=== PATIENT | male | born 1945 | race Caucasian/White ===

== ENCOUNTER 2019-12-05 12:22 | Emergency (ER) | payer OTHER ==
--- NOTE | 2019-12-05 12:34 | ED ---
Headache - HPI Summary HPI Summary: 74 year old M arriving via ambulance from [facility] with family member complains of diffuse headache x14 days. Patient states that he has had a headache every day for the last 14 days. He states that these headaches start at the same time every day. He takes Advil x2 with relief. Patient states he feels fine when waking up every morning. No nausea/vomiting, chest pain, shortness of breath, visual changes, abdominal pain, weakness, numbness. No recent falls/trauma/injury. No recent medication changes. Pain rated 9/10 in severity. Symptoms aggravated by nothing. Symptoms alleviated by Advil. Medications reviewed. Allergies noted. Hx hypertension. Patient states that his blood pressure today is higher than usual. - History Of Current Complaint Stated Complaint: CHRONIC HEADACHES PER EMS Time Seen by Provider: 12/05/19 12:26 Hx Obtained From: Patient Onset/Duration: Started days ago - 14, Still Present Currently Pain Is: Current Pain Scale(0-10)= - 9, Severe Timing: Intermittent, Lasting: Location of Headache: Diffuse Aggravating Factor: Nothing Allevating Factors: Medication Associated Signs And Symptoms: Negative - nausea/vomiting, chest pain, shortness of breath, visual changes, abdominal pain, weakness, numbness - Allergies/Home Medications Home Medications: Home Medications Ascorbic Acid TAB* [Vitamin C TAB*] 500 mg PO DAILY 12/05/19 [History Confirmed 12/05/19] Aspirin EC TAB* [Ecotrin EC Low Dose 81 MG*] 81 mg PO DAILY 12/05/19 [History Confirmed 12/05/19] Clopidogrel TAB* [Plavix TAB*] 75 mg PO DAILY 12/05/19 [History Confirmed ] Etanercept SYR (NF) [Enbrel (NF)] 50 mg SUBCUT WEEKLY 12/05/19 [History Confirmed 12/05/19] Folic Acid 1,600 mcg PO DAILY 12/05/19 [History Confirmed 12/05/19] Lisinopril TAB* [Prinivil TAB*] 40 mg PO DAILY 12/05/19 [History Confirmed 12/05] Methotrexate TAB* 15 mg PO WEEKLY 12/05/19 [History Confirmed 12/05/19] Omeprazole CAP (NF) [Prilosec CAP* 20 MG] 20 mg PO DAILY 12/05/19 [History Confirmed 12/05/19] Simvastatin TAB(NF) [Zocor(NF)] 10 mg PO DAILY 12/05/19 [History Confirmed 12/05] PMH/Surg Hx/FS Hx/Imm Hx Cardiovascular History: Reports: Hx Hypertension Sensory History: Reports: Hx Contacts or Glasses Opthamlomology History: Reports: Hx Contacts or Glasses - Surgical History Surgery Procedure, Year, and Place: right wrist Infectious Disease History: Denies: Traveled Outside the [place] in Last 30 Days - Family History Known Family History: Positive: Other - father had lung cancer, mother had breast cancer - Social History Alcohol Use: None Substance Use Type: Reports: None Hx Tobacco Use: No Smoking Status (MU): Never Smoked Tobacco Review of Systems Negative: Blurred Vision Negative: Chest Pain Negative: Vomiting, Nausea Positive: Headache. Negative: Weakness, Numbness All Other Systems Reviewed And Are Negative: Yes Physical Exam - Summary Physical Exam Summary: Constitutional: Well-developed, Well-nourished, Alert. (-) Distressed Skin: Warm, Dry HENT: Normocephalic; Atraumatic Eyes: Conjunctiva normal Neck: Musculoskeletal ROM normal neck. (-) JVD, (-) Stridor, (-) Tracheal deviation Cardio: Rhythm regular, rate normal, Heart sounds normal; Intact distal pulses; The pedal pulses are 2+ and symmetric. Radial pulses are 2+ and symmetric. (-) Murmur Pulmonary/Chest wall: Effort normal. (-) Respiratory distress, (-) Wheezes, (-) Rales Abd: Soft, (-) tenderness, (-) Distension, (-) Guarding, (-) Rebound Musculoskeletal: (-) Edema Lymph: (-) Cervical adenopathy Neuro: Alert, Oriented x3 Psych: Mood and affect Normal GCS :15 Triage Information Reviewed: Yes Vital Signs Reviewed: Yes Procedures - Sedation Patient Received Moderate/Deep Sedation with Procedure: No Diagnostics - Laboratory Result Diagrams: 12/05/19 12:57 12/05/19 12:57 Lab Statement: Any lab studies that have been ordered have been reviewed, and results considered in the medical decision making process. - CT Brain CT Interpretation Completed By: Radiologist Summary of CT Findings: 1. NO ACUTE INTRACRANIAL PATHOLOGY. 2. SINUS MUCOSAL INFLAMMATORY DISEASE WITH A SPHENOID SINUS MUCOUS RETENTION CYST VERSUS CHRONIC SPHENOID SINUSITIS. ED physician has reviewed this report. Re-Evaluation - Re-Evaluation First Eval Re-Evaluation Time: 15:30 Comment: family members note new redness to patient's face. will order Benadryl Headache Course/Dx - Course Course Of Treatment: 74 year old M arriving via ambulance from [facility] complains of diffuse headache x14 days. Patient states that he has had a headache every day for the last 14 days. He states that these headaches start at the same time every day. He takes Advil x2 with relief. Patient states he feels fine when waking up every morning. No nausea/vomiting, chest pain, shortness of breath, visual changes, abdominal pain, weakness, numbness. No recent falls/trauma/injury. No recent medication changes. Hx hypertension. Patient states that his blood pressure today is higher than usual. Physical exam unremarkable. Bloodwork results with no significant abnormalities except for Hgb 13.9, Hct 39, MCH 32, absolute eos 1.1. CT Brain shows per radiologist : 1. NO ACUTE INTRACRANIAL PATHOLOGY. 2. SINUS MUCOSAL INFLAMMATORY DISEASE WITH A SPHENOID SINUS MUCOUS RETENTION CYST VERSUS CHRONIC SPHENOID SINUSITIS. In the ED course, the patient was given acetaminophen 650 mg PO, hydralazine 10 mg IV, ketorolac 15 mg IV, and normal saline 1 L IV. Patient will be discharged home with follow up from his primary care provider in 2-3 days. Patient was instructed to return to Emergency Department for new or worsening symptoms. Patient understands and is agreeable to this plan. - Diagnoses Provider Diagnoses: Headache, Hypertension Discharge ED - Sign-Out/Discharge Documenting (check all that apply): Patient Departure - Discharge Plan Condition: Stable Disposition: HOME Patient Education Materials: Hypertension (ED), General Headache (ED) Referrals: Heber Doyle MD [Primary Care Provider] - 2 Days Additional Instructions: Follow up with your primary care provider in 2-3 days. Return to the Emergency Department for new or worsening symptoms. - Billing Disposition and Condition Condition: STABLE Disposition: Home - Attestation Statements Document Initiated by Scribe: Yes Documenting Scribe: Aura Gotti Provider For Whom Yariibe is Documenting (Include Credential): Krunal Merritt DO Scribe Attestation: Aura Ingram scribed for Krunal Merritt DO on 12/05/19 at 1721. Scribe Documentation Reviewed: Yes Provider Attestation: The documentation as recorded by the scribe, Aura Gotti accurately reflects the service I personally performed and the decisions made by me, Krunal Merritt, DO Status of Scribe Document: Viewed
[2019-12-05] MEDS ORDERED: NS 0.9% 1000 ML** 1,000 ML IV ONE (12:35)
[2019-12-05] MEDS ORDERED: hydrALAZINE IV* 20 MG/ML VIAL IV SLOW PU ONE (12:35)
[2019-12-05 13:04] LABS: ABS Eosinophils 1.1 10^3/ul (0-0.6); ABS Lymphocytes 1.7 10^3/ul (1.0-4.8); ABS Monocytes 0.3 10^3/ul (0-0.8); ABS Neutrophils 2.9 10^3/ul (1.5-7.7); Hematocrit 39 % (42-52); Hemoglobin 13.9 g/dL (14.0-18.0); Lymphocyte % 28.6 %; Mean Corpuscular HGB Conc 35 g/dL (31-36); Mean Corpuscular Hemoglobin 32 pg (27-31); Mean Corpuscular Volume 91 fL (80-94); Mean Platelet Volume 8.3 fL (7.4-10.4); Platelet Count 207 10^3/uL (150-450); Red Blood Count 4.31 10^6 /uL (4.18-5.48); Red Cell Distribution Width 14 % (10-15)
[2019-12-05 13:25] LABS: Albumin 3.8 g/dL (3.2-5.2); Calcium 8.9 mg/dL (8.6-10.3); Potassium 4.1 mmol/L (3.5-5.0); Total Bilirubin 0.8 mg/dL (0.2-1.0)
[2019-12-05 13:31] LABS: Albumin/Globulin Ratio 1.5 (1-3); BUN/Creatinine Ratio 19.5 (8-20); EGFR African American 103.2 (>60); EGFR Non-African American 85.3 (>60); Globulin 2.6 g/dL (2-4); Total Protein 6.4 g/dL (6.4-8.9)
[2019-12-05] MEDS ORDERED: Acetaminophen TAB* 325 MG PO ONE (13:38)
[2019-12-05] MEDS ORDERED: Ketorolac INJ* 30 MG/ML 1 ML VIAL IV PUSH ONE (13:38)
[2019-12-05] MEDS ORDERED: diPHENhydraMINE IV* 50 MG/ML 1 ml VIAL (BENADRYL) IV ONE (15:30)
[2019-12-05 17:43] VITALS: BP 117/81
== END 2019-12-05 17:18 | disposition home or self-care (01) ==
LOC: ED 12:22
DX: I10 Essential (primary) hypertension (principal); Z79.01 Long term (current) use of anticoagulants; Z79.82 Long term (current) use of aspirin; Z79.899 Other long term (current) drug therapy
CPT/HCPCS: 36415; 70450; 80053; 85025; 96361; 96374; 96375; 99283; A9270-GY; J0360; J1200; J1885